=== PATIENT | female | born 1995 | race Hispanic/Latino ===

== ENCOUNTER 2023-11-16 14:50 | Outpatient (CLI) | payer OTHER | END 2023-11-16 14:51 | disposition home or self-care (01) | LOC: BICULT 14:50 | DX: O09.33 Supervision of pregnancy with insufficient antenatal care, third trimester (principal); O44.23 Partial placenta previa NOS or without hemorrhage, third trimester; O26.833 Pregnancy related renal disease, third trimester; Z3A.32 32 weeks gestation of pregnancy | CPT/HCPCS: 76805 ==